=== PATIENT | female | born 1995 | race African-American/Black ===

== ENCOUNTER 2020-10-23 03:29 | Observation (INO) | payer MEDICAID, OTHER ==
[~2020-10-23] VITALS: Ht 3 cm; Wt 86.2 kg
[2020-10-23] MEDS ORDERED: LACTATED RINGERS 1,000 ML IV SCH (04:15)
[2020-10-23] MEDS ORDERED: PNV1TABL76 PO (04:47)
[2020-10-23] MEDS ORDERED: FERR-71 MT (04:47)
[2020-10-23 04:49] LABS: CLARITY URINE CLEAR (CLEAR); COLOR URINE YELLOW (YELLOW); KETONES URINE NEGATIVE (NEGATIVE); LEUKOCYTE ESTERASE URINE 2+ (NEGATIVE); NITRITE URINE NEGATIVE (NEGATIVE); OCCULT BLOOD URINE NEGATIVE (NEGATIVE); PROTEIN URINE NEGATIVE (NEGATIVE); SPECIFIC GRAVITY URINE 1.019 (1.005-1.030); UROBILINOGEN URINE 0.2 E.U./dL (0.2-1.0)
[2020-10-23 04:51] LABS: BASOPHILS % 0.2 % (0.0-2.0); EOSINOPHILS % 1.3 % (0.0-5.0); HEMATOCRIT. 32.1 % (36.0-48.0); HEMOGLOBIN. 10.9 g/dL (12.0-16.0); MEAN CORPUSCULAR HEMOGLOBIN 31.3 pg (28.0-32.0); MEAN CORPUSCULAR VOLUME 91.8 fL (81.0-99.0); MEAN PLATELET VOLUME 8.6 fl (7.4-10.4); MONOCYTES % 13.2 % (2.0-8.0); NEUTROPHILS % 69.3 % (40.0-76.0); PLATELET 165 x1000/uL (130-400); RED BLOOD CELL COUNT 3.49 mill/uL (4.2-5.4); RED CELL DISTRIBUTION WIDTH 12.8 % (11.6-14.6)
[2020-10-23 04:55] LABS: CHLORIDE 106 mEq/L (98-107)
== END 2020-10-23 07:45 | disposition home or self-care (01) ==
LOC: INTOOBSV 03:29 → OBSVTOIN 03:29 → 8 EST LDRP 03:29
PROVIDERS: ADMIT Obstetrics & Gynecology; ATTEND Obstetrics & Gynecology
DX: O26.893 Other specified pregnancy related conditions, third trimester (principal); R10.9 Unspecified abdominal pain; Z3A.36 36 weeks gestation of pregnancy
CPT/HCPCS: 36415; 59025; 76805; 76818; 80053; 81003; 85025; 96360; 96361; G0378; 99281